=== PATIENT | female | born 1940 | race Caucasian/White ===

== ENCOUNTER 2024-10-12 13:07 | Outpatient (AMB) | payer MEDICARE, SELFPAY ==
--- NOTE | 2024-10-12 13:11 | A.OFFVIS_ITS ---
Vital Signs 10/12/24 13:15 Height 5 ft 4.5 in Weight 155 lb BMI 26.2 BP 126/58 L Blood Pressure Location Rt brachial Position Sitting Pulse 76 Pulse Source Pulse Oximeter Pulse Oximetry (%) 97 Oxygen Delivery Method Room Air Intake Visit Reasons: uncontrolled pain/chronic cystitis. 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 Accompanied by: Self / Same As Patient Allergies Penicillins Allergy (Unknown, Verified 10/12/24 13:15) Swelling Medication List - Last Reviewed 10/12/24 by Hannah Antunez aspirin 81 mg PO DAILY atorvastatin 20 mg PO BEDTIME cholecalciferol (vitamin D3) 50 mcg PO DAILY doxepin 10 mg PO BEDTIME folic acid 1 mg PO DAILY ketoconazole 2% 1 appl topical DAILY levothyroxine 50 mcg PO DAILY liothyronine 5 mcg PO DAILY metronidazole 0.75% appl topical mirtazapine 7.5 mg PO BEDTIME omega 3-ppj-rlz-fish oil 1,000 (120-180) mg (Fish Oil) 1 cap PO DAILY oxycodone 7.5 mg PO BID PRN paroxetine HCl 20 mg PO DAILY pramipexole mg PO sennosides (senna) 8.6 mg PO DAILY PRN trazodone 300 mg PO BEDTIME zolpidem 10 mg PO BEDTIME PRN HPI HPI uncontrolled pain/chronic cystitis.: Details: Patient is a 83 years old female with long standing history of interstitial cystitis since age 37, depression, fatigue, chronic pain syndrome, insomnia, restless leg syndrome, presents today for initial evaluation for medical management for chronic pain related to interstitial cystitis (IC). Denies any recent trauma, injury or falls. Patient recently moved from [place] to [facility], where she resides in assisted living facility and is being closer to her son. Patient reports was followed by Pain clinic and Urology providers in [place] for many years and then [facility] for chronic pain management due to IC, which included multiple trial and fail of opioid and other multi-modal medications, including gabapentin, Lyrica, amitriptyline, muscle relaxants, urinary tract analgesics, cystoscopies and intravesicular instillations, therapeutic injections, multiple courses of pelvic floor PT, and neuromodulation with Sacral stimulator that has been placed over 25 years ago but has not been used due to ineffectiveness. She is hesitant to remove it. Patient reports oxycodone 15 mg 1/2 tab BID-TID prn has been working well for her although she reports used to take significantly higher MME doses of opioids in the past. She reports her current PCP is hesitant to continue opioid prescribing. Patient reports constant pain ranging 3-8/10 pelvic floor pain, mainly her bladder with burning and urgency. Pain is most severe in the evening and least severe after sleeping until urination happens and then pain starts again and worsens as the day goes on. Pain is aggravated by movements and urination or prolonged sitting. She reports IC is hereditary in her family. Patient is not interested in additional interventional treatments but would like to continue chronic opioid regime that has been working for her for many years for painful bladder syndrome. Denies any fever or chills, dizziness, weakness, bleeding, rash, discharge, hematuria, urogenital prolapse, urinary tract infection, bladder or bowel dysfunction or saddle anesthesia. Patient reports she has not been able to find Psychiatrist since moving to [place] from [place] but was able to have few refills on medications for depression, anxiety and insomnia from previous Psychiatrist. 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 She denies smoking, cannabis use, illicit drug use, admits to occasional wine or bourbon consumption. Location: Bladder, pelvic area with chronic pain and tenderness Duration: Chronic pain for >50 years Characteristics of symptom or complaint: Deep throbbing, burning, urgency, spasming, hurting, tearing, heavy Aggravating or associated factors: Sitting, dysuria, bladder filling, constant urge to void, nocturia Relieving factors: Vaginal cream, oxycodone, small volume voids, rest, Treatment: Pelvic floor PT, Urology interventions-multiple, Sacral nerve stimulator COUNTS INCLUDE 234 BEDS AT [facility] Medical History (Updated 10/12/24 @ 20:37 by JUAN CARLOS Cordova) Sacral nerve stimulator present Anxiety PTSD (post-traumatic stress disorder) Former smoker Insomnia secondary to chronic pain Unsteady gait Hypothyroidism Interstitial cystitis Depression Restless legs syndrome Intertriginous candidiasis Actinic keratosis Surgical History History of tonsillectomy History of Social History Alcohol intake: former Patient Tobacco Use Status: Former Tobacco user Review of Systems Const All systems reviewed & are unremarkable except as noted in HPI and below Physical Exam Vital Signs: Last Vital Signs Pulse 76 10/12/24 13:15 BP 126/58 L 10/12/24 13:15 Pulse Ox 97 10/12/24 13:15 Oxygen Delivery Method Room Air 10/12/24 13:15 BMI result Body Mass Index 26.2 General: Appears afebrile. Alert and oriented. Mood and affect appropriate. Follows and participates in conversation appropriately. Respiratory effort is unlabored. No cough. Able to transition from sit to stand unassisted. Ambulates with bilaterally normal heel strike and toe off. GI Inspection: Yes normal to inspection and No distended Palpation (GI): Soft to palpation, Tenderness to palpation present (GI) suprapubicly and no guarding General: Yes no CVA tenderness Back/Spine/Pelvis Back: no CVA tenderness Psych Appearance: grossly normal and well kempt Mental Status: mental status grossly normal Speech and movement: Normal speech and movement present and Clear speech present Affect: normal affect Attitude: cooperative Thought process: Normal thought process present Thought content: Normal thought content present, suicidality, no hallucinations and No Depressive thoughts present Insight: Good insight present (Psych) Judgement: Good judgement present (Psych) Assessment & Plan Assessment & Plan (1) Interstitial cystitis: Code(s): N30.10 - Interstitial cystitis (chronic) without hematuria Category: Medical (2) Chronic pain syndrome: Code(s): G89.4 - Chronic pain syndrome Category: Medical (3) Sacral nerve stimulator present: Comment: Inactive for many years per patient Code(s): Z96.82 - Presence of neurostimulator Category: Medical Plan Discussed interventional treatments for painful bladder syndrome or IC, including reprogramming and checking sacral stimulator device, therapeutic injections, establishing care with new Urology provider, and continue current opioid medical management. Patient has trialed and failed multiple conservative and interventional therapies in [place] and [facility] and is no longer interested to continue Urology therapies or interventions. Patient reports sacral nerve stimulator has been inactive for almost 20 years. Patient reports current opioid regime allows her to be less symptomatic and more functional. [employer] was reviewed and is consistent with her history. On evaluation, it was determined that there was a continued need to continue palliative chronic opioid prescribing. We reviewed our opioid program policy and entrance steps. Risks and benefits were discussed with the patient. Patient agreed to have the UDS performed this week as this visit has been during off lab hours. She is not sure what day this week her son can bring her for UDS but promises it will be completed by Saturday. Patient is aware that this office can not prescribe until the UDS is reviewed and contracts are signed. All questions were answered and she is agreeable to the plan. Follow up as needed. Coding Level of Care Code New Pt Level 4 ([id number]) Complex EM visit Add On G2211 Diagnoses Interstitial cystitis N30.10 Chronic pain syndrome G89.4 Sacral nerve stimulator present Z96.82
[2024-10-12 13:15] VITALS: BP 126/58; PULSE 76; O2SAT 97; BMI 26.2
== END 2024-10-12 14:01 | disposition home or self-care (01) ==
PROVIDERS: PCP Internal Medicine; Referring Provider Internal Medicine; Visit Provider Nurse Practitioner Family
DX: N30.10 Interstitial cystitis (chronic) without hematuria (principal); G89.4 Chronic pain syndrome; Z96.82 Presence of neurostimulator
CPT/HCPCS: 99204; G2211

== ENCOUNTER → 2024-10-12 13:07 | Outpatient (BNVA) | payer MEDICARE, SELFPAY | PROVIDERS: PCP Internal Medicine; Referring Provider Internal Medicine; Visit Provider Nurse Practitioner Family | DX: N30.10 Interstitial cystitis (chronic) without hematuria (principal); G89.4 Chronic pain syndrome; Z96.82 Presence of neurostimulator | CPT/HCPCS: 99202 ==